=== PATIENT | male | born 1985 | race Caucasian/White ===

== ENCOUNTER 2018-10-11 10:15 | Outpatient (CLI) | payer OTHER ==
[2013-07-08 23:56] VITALS: BP 127/71
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
== END 2018-10-11 10:17 ==
LOC: RAD 10:15
PROVIDERS: ATTEND Family Medicine
DX: M54.5 Low back pain (principal)
CPT/HCPCS: 72072; 72100